=== PATIENT | male | born 1980 | race Two or more races ===

== ENCOUNTER → 2020-08-09 | Outpatient (CLI) | payer OTHER | LOC: EXRD 11:27 | DX: R76.11 Nonspecific reaction to tuberculin skin test without active tuberculosis (principal) | CPT/HCPCS: 71046 ==

== ENCOUNTER → 2020-08-21 | Outpatient (CLI) | payer OTHER | LOC: EXRD 09:19 → KOH-I 10:00 | DX: R74.8 Abnormal levels of other serum enzymes (principal); R61 Generalized hyperhidrosis; R63.4 Abnormal weight loss | CPT/HCPCS: 76705 ==

== ENCOUNTER → 2020-09-03 | Outpatient (CLI) | payer OTHER | LOC: LAB 13:25 | DX: R76.12 Nonspecific reaction to cell mediated immunity measurement of gamma interferon antigen response without active tuberculosis (principal) | CPT/HCPCS: 36415; 87070; 87205 ==